=== PATIENT | female | born 1990 | race African-American/Black ===

== ENCOUNTER 2024-10-26 16:10 | Emergency (ER) | payer OTHER ==
[2024-10-26 18:26] LABS: BHCG - Serum Negative (NEGATIVE); Pregs Control Background? CLEAR/WHITE (CLR/WHITE); Pregs Control Bar Appear? YES (CONTROL BAR)
== END 2024-10-26 19:28 | disposition home or self-care (01) ==
LOC: ERS 16:10
DX: N92.6 Irregular menstruation, unspecified (principal); F17.210 Nicotine dependence, cigarettes, uncomplicated
CPT/HCPCS: 36415; 84703; 99282

== ENCOUNTER 2025-01-26 02:18 | Emergency (ER) | payer OTHER ==
[2025-01-26 02:50] LABS: #Basophils 0.04 10x3/uL (0.0-0.2); #Eosinophils 0.38 10x3/uL (0.0-0.7); #Monocytes 0.91 10x3/uL (0.11-0.59); #Neutrophils 7.59 10x3/uL (1.40-6.50); %Basophils 0.3 % (0.0-1.0); %Eosinophils 3.2 % (0.0-10.0); %Lymphocytes 25.5 % (21.0-51.0); %Monocytes 7.6 % (0.0-10.0); %Neutrophils 63.2 % (42.0-75.0); Hematocrit 35.9 % (36.0-47.0); Hemoglobin 12.2 g/dL (12.0-16.0); Mean Corpuscular Hemoglobin 29.8 pg (27.0-31.0); Mean Corpuscular Volume 87.6 fL (78.0-98.0); Platelet Count 427 10x3/uL (130-400); Red Blood Cell (RBC) Count 4.10 mill/uL (4.20-5.40); White Blood Cell (WBC) Count 12.02 10x3/uL (4.8-10.8)
[2025-01-26 03:04] LABS: ALT (SGPT) 14 U/L (Less than 34); AST (SGOT) 39 U/L (11-34); Albumin 3.5 g/dL (3.1-4.5); Alkaline Phosphatase 75 U/L (40-110); Anion Gap 17 mmol/L (10-20); BUN (Urea Nitrogen) 7 mg/dL (7.0-18.7); Bilirubin, Total 0.4 mg/dL (0.3-1.2); Calc. Creatinine Clearance 0 mL/min (70-130); Calcium 8.5 mg/dL (7.8-10.44); Carbon Dioxide 18 mmol/L (22-29); Chloride 111 mmol/L (98-107); Globulin 3.4 g/dL (2.4-3.5); Glucose 123 mg/dL (70-105); Potassium 4.8 mmol/L (3.5-5.1); Sodium 141 mmol/L (136-145)
[2025-01-26 03:05] LABS: BHCG - Serum Negative (NEGATIVE); Pregs Control Background? CLEAR/WHITE (CLR/WHITE); Pregs Control Bar Appear? YES (CONTROL BAR)
[2025-01-26] MEDS ORDERED: Dexamethasone 10 MG/ML VIAL ONE (03:22)
== END 2025-01-26 04:34 | disposition home or self-care (01) ==
LOC: ERS 02:18
DX: J20.9 Acute bronchitis, unspecified (principal); E86.0 Dehydration; F17.210 Nicotine dependence, cigarettes, uncomplicated
CPT/HCPCS: 71045; 80053; 84484; 84703; 85025; 87428; 93005; 96361; 96374; J1100

== ENCOUNTER 2025-01-28 14:02 | Emergency (ER) | payer OTHER ==
[2025-01-28] MEDS ORDERED: predniSONE 20 MG TAB ONE (15:09)
== END 2025-01-28 16:45 | disposition home or self-care (01) ==
LOC: ERS 14:02
DX: B34.9 Viral infection, unspecified (principal); F17.210 Nicotine dependence, cigarettes, uncomplicated
CPT/HCPCS: 71045; 87428; 94640; J7512